=== PATIENT | male | born 1995 | race Caucasian/White ===

== ENCOUNTER 2016-10-19 04:31 | Emergency (ER) | payer SELFPAY ==
[~2016-10-19] VITALS: Ht 185.4 cm; Wt 93.9 kg
[~2016-10-19 04:31] MED LIST: ABILIFY10 MG PO; ABILIFY30 MG PO; ABILIFY5 MG PO; BUSPAR5 MG PO; Benadryl PO; CELEXA10 MG PO; CLONIDINE HCL0.1 MG PO; DIVALPROEX SOD250 MG PO; DIVALPROEX SOD500 M1 PO; DIVALPROEX SOD500 MG PO; EPIPEN ADU0.3 MG/0.3 IM; GABAPENTIN100 MG PO; GABAPENTIN300 MG PO; IBUPROFEN600 MG PO; INVEGA6 MG PO; LAMICTAL150 M1 PO; LAMICTAL200 MG PO; LAMICTAL25 MG PO; MIRTAZAPINE15 MG PO; MOTRIN800 MG PO; NEURONTIN100 MG PO; NEURONTIN300 MG PO; NEURONTIN600 MG PO; PRAZOSIN HCL1 MG PO; PREDNISONE20 MG PO; RISPERDAL0.5 MG PO; RISPERIDONE0.25 MG PO; SEROQUEL XR300 MG PO; TENEX1 M1 PO; TRAZODONE HCL50 MG PO; TRILEPTAL300 MG PO; ULTRAM50 MG PO; ZOFRAN4 MG PO; ZOLOFT50 MG PO
[2016-10-19] MEDS ORDERED: LATUDA40 MG PO (05:34)
[2016-10-19] MEDS ORDERED: BUSPAR5 MG PO (05:34)
[2016-10-19 05:46] VITALS: BP 139/74
== END 2016-10-19 06:20 | disposition home or self-care (01) ==
LOC: EME 04:31
DX: F41.0 Panic disorder [episodic paroxysmal anxiety] (principal); F41.1 Generalized anxiety disorder; Z76.0 Encounter for issue of repeat prescription
CPT/HCPCS: 99281; 99284

== ENCOUNTER 2016-12-08 19:59 | Emergency (ER) | payer OTHER ==
[~2016-12-08] VITALS: Ht 180.3 cm; Wt 97.2 kg
[~2016-12-08 19:59] MED LIST changes: +LATUDA40 MG PO
[2016-12-08 21:04] LABS: HEMATOCRIT 45.4 % (38.0-50.0); MCHC 34.6 G/DL (30.0-36.0); MCV 98.3 FL (86-99); MEAN PLAT.VOLUME 10.4 uM^3 (9.0-12.4); PLATELET COUNT 237 K/uL (156-360); RBC DIS.WIDTH-CV 11.9 % (11.8-14.6); RBC DIS.WIDTH-SD 43.1 % (39-53); RED BLOOD COUNT 4.62 M/uL (4.00-5.50); WHITE BLOOD COUNT 9.3 K/uL (4.1-10.2)
[2016-12-08 21:09] LABS: CHLORIDE 103 mEq/L (99-109); POTASSIUM 3.9 mEq/L (3.7-5.4); SODIUM 140 mEq/L (136-147)
[2016-12-08 21:11] LABS: GLUCOSE 88 mg/dL (70-99)
[2016-12-08 21:13] LABS: ANION GAP 8 MEQ/L (2-14); TROP-I INTERPRETATION NEGATIVE; TROPONIN-I < 0.01 ng/mL (0.0-0.30)
[2016-12-08 21:16] LABS: UREA NITROGEN (BUN) 12 mg/dL (9-23)
[2016-12-08 21:33] LABS: GFR ESTIMATE (CALCULATED) > 59 mL/min/
[2016-12-08 22:41] VITALS: BP 127/78
== END 2016-12-08 22:42 | disposition left against medical advice (07) ==
LOC: EME 19:59
DX: R07.9 Chest pain, unspecified (principal); M79.602 Pain in left arm; Z53.21 Procedure and treatment not carried out due to patient leaving prior to being seen by health care provider
CPT/HCPCS: 71020; 80048; 84484; 85027; 93005; 99281; 99284

== ENCOUNTER 2016-12-23 21:31 | Inpatient (IN) | payer OTHER ==
[~2016-12-23] VITALS: Ht 180.3 cm; Wt 96.5 kg
[2016-12-23] MEDS ORDERED: LATUDA40 MG PO (23:20)
[2016-12-24 00:19] LABS: HEMATOCRIT 43.6 % (38.0-50.0); MCHC 34.9 G/DL (30.0-36.0); MCV 97.5 FL (86-99); MEAN PLAT.VOLUME 10.6 uM^3 (9.0-12.4); PLATELET COUNT 241 K/uL (156-360); RBC DIS.WIDTH-CV 11.8 % (11.8-14.6); RBC DIS.WIDTH-SD 42.5 % (39-53); RED BLOOD COUNT 4.47 M/uL (4.00-5.50); WHITE BLOOD COUNT 11.2 K/uL (4.1-10.2)
[2016-12-24 00:21] LABS: AMPHETAMINE NEGATIVE (500 ng/mL); BARBITURATES NEGATIVE (200 ng/mL); BENZODIAZEPINES NEGATIVE (150 ng/mL); COCAINE NEGATIVE (150 ng/mL); INTERNAL CONTROLS VALID? YES; METHADONE NEGATIVE (200 ng/mL); METHAMPHETAMINE NEGATIVE (500 ng/mL); OPIATES (MORPHINE) NEGATIVE (100 ng/mL); OXYCODONE NEGATIVE (100 ng/mL); PHENCYCLIDINE NEGATIVE (25 ng/mL); PROPOXYPHENE NEGATIVE (300 ng/mL); THC CANNABINOIDS NEGATIVE (50 ng/mL); TRICYCLIC ANTIDEPRESSANTS NEGATIVE (300 ng/mL)
[2016-12-24 00:30] LABS: CHLORIDE 107 mEq/L (99-109); SODIUM 142 mEq/L (136-147)
[2016-12-24 00:32] LABS: GLUCOSE 95 mg/dL (70-99)
[2016-12-24 00:33] LABS: ANION GAP 8 MEQ/L (2-14)
[2016-12-24 00:35] LABS: SERUM ETHYL ALCOHOL < 10 mg/dL
[2016-12-24 00:36] LABS: GFR ESTIMATE (CALCULATED) > 59 mL/min/
[2016-12-24 00:37] LABS: UREA NITROGEN (BUN) 16 mg/dL (9-23)
[2016-12-24 07:49] VITALS: BP 89/45
[2016-12-24 11:00] VITALS: BP 126/68
[2016-12-24 15:52] VITALS: BP 132/78
[2016-12-25 08:04] VITALS: BP 95/42
[2016-12-25 16:04] VITALS: BP 127/59
[2016-12-26 07:40] VITALS: BP 109/53
[2016-12-26] MEDS ORDERED: QUETIAPINE FUM300 MG PO (09:17)
== END 2016-12-26 09:37 | disposition home or self-care (01) | DRG 885 ==
LOC: EME 21:31 → 1WEST 12-24 02:06 → EDOF 12-24 02:06 → 1WEST 12-24 03:08
PROVIDERS: Emergency Medicine
DX: F33.9 Major depressive disorder, recurrent, unspecified (principal); R45.851 Suicidal ideations; F41.1 Generalized anxiety disorder; F60.9 Personality disorder, unspecified; F19.10 Other psychoactive substance abuse, uncomplicated; F11.21 Opioid dependence, in remission; Z59.0 Homelessness
CPT/HCPCS: 80048; 85027; 90837; 97150 GO; 97166 GO; 99281; 99285; G0480

== ENCOUNTER 2017-01-24 16:19 | Emergency (ER) | payer OTHER ==
[~2017-01-24] VITALS: Ht 180.3 cm; Wt 99.4 kg
[~2017-01-24 16:19] MED LIST changes: +QUETIAPINE FUM300 MG PO
[2017-01-24 16:59] LABS: HEMATOCRIT 44.5 % (38.0-50.0); MCH 33.7 PG (29.0-34.0); MCHC 35.5 G/DL (30.0-36.0); MCV 94.9 FL (86-99); MEAN PLAT.VOLUME 10.3 uM^3 (9.0-12.4); PLATELET COUNT 254 K/uL (156-360); RBC DIS.WIDTH-CV 11.4 % (11.8-14.6); RED BLOOD COUNT 4.69 M/uL (4.00-5.50); WHITE BLOOD COUNT 10.3 K/uL (4.1-10.2)
[2017-01-24 17:09] LABS: CHLORIDE 106 mEq/L (99-109); POTASSIUM 4.1 mEq/L (3.7-5.4); SODIUM 144 mEq/L (136-147)
[2017-01-24 17:11] LABS: GLUCOSE 90 mg/dL (70-99)
[2017-01-24 17:12] LABS: ANION GAP 9 MEQ/L (2-14)
[2017-01-24 17:14] LABS: SERUM ETHYL ALCOHOL < 10 mg/dL
[2017-01-24 17:15] LABS: GFR ESTIMATE (CALCULATED) > 59 mL/min/
[2017-01-24 17:16] LABS: UREA NITROGEN (BUN) 18 mg/dL (9-23)
[2017-01-24 19:01] LABS: AMPHETAMINE NEGATIVE (500 ng/mL); BARBITURATES NEGATIVE (200 ng/mL); BENZODIAZEPINES NEGATIVE (150 ng/mL); COCAINE NEGATIVE (150 ng/mL); INTERNAL CONTROLS VALID? YES; METHADONE NEGATIVE (200 ng/mL); METHAMPHETAMINE NEGATIVE (500 ng/mL); OPIATES (MORPHINE) NEGATIVE (100 ng/mL); OXYCODONE NEGATIVE (100 ng/mL); PHENCYCLIDINE NEGATIVE (25 ng/mL); PROPOXYPHENE NEGATIVE (300 ng/mL); THC CANNABINOIDS NEGATIVE (50 ng/mL); TRICYCLIC ANTIDEPRESSANTS NEGATIVE (300 ng/mL)
[2017-01-25 11:35] VITALS: BP 113/61
== END 2017-01-25 11:50 ==
LOC: EME 16:19
PROVIDERS: Emergency Medicine
DX: F33.2 Major depressive disorder, recurrent severe without psychotic features (principal); F31.9 Bipolar disorder, unspecified; R45.851 Suicidal ideations; Z91.19 Patient's noncompliance with other medical treatment and regimen; F17.200 Nicotine dependence, unspecified, uncomplicated
CPT/HCPCS: 80048; 85027; 90837; 99281; 99285; G0480

== ENCOUNTER 2017-09-22 12:51 | Emergency (ER) | payer OTHER ==
[~2017-09-22] VITALS: Ht 180.3 cm; Wt 110.5 kg
[2017-09-22 13:46] LABS: HEMATOCRIT 45.7 % (38.0-50.0); HEMOGLOBIN 16.3 G/DL (12.5-16.6); MCH 34.7 PG (29.0-34.0); MCHC 35.7 G/DL (30.0-36.0); MCV 97.2 FL (86-99); PLATELET COUNT 236 K/uL (156-360); RBC DIS.WIDTH-CV 11.7 % (11.8-14.6); RBC DIS.WIDTH-SD 42.2 % (39-53)
[2017-09-22 13:54] LABS: ALBUMIN 4.2 g/dL (3.2-4.8)
[2017-09-22 13:55] LABS: CHLORIDE 107 mEq/L (99-109); POTASSIUM 4.1 mEq/L (3.7-5.4); SODIUM 141 mEq/L (136-147)
[2017-09-22 13:57] LABS: GLUCOSE 88 mg/dL (70-99); TOTAL PROTEIN 7.3 g/dL (6.4-8.3)
[2017-09-22 13:59] LABS: TOTAL BILIRUBIN 0.5 mg/dL (0.0-1.0)
[2017-09-22 14:01] LABS: ALKALINE PHOSPHATASE 96 IU/L (3-129); CREATININE 0.8 mg/dL (0.6-1.3); GFR ESTIMATE (CALCULATED) > 59 mL/min/ (58.99-99999)
[2017-09-22 14:02] LABS: UREA NITROGEN (BUN) 17 mg/dL (9-23)
[2017-09-22 14:03] LABS: AST (GOT) 27 IU/L (2-34)
[2017-09-22 14:04] LABS: ALT (GPT) 29 IU/L (3-49)
[2017-09-22 16:33] VITALS: BP 114/69
== END 2017-09-22 16:34 | disposition home or self-care (01) ==
LOC: EME 12:51
DX: R10.32 Left lower quadrant pain (principal); R19.7 Diarrhea, unspecified; K50.90 Crohn's disease, unspecified, without complications; F90.9 Attention-deficit hyperactivity disorder, unspecified type; F43.10 Post-traumatic stress disorder, unspecified; F41.9 Anxiety disorder, unspecified; Z87.891 Personal history of nicotine dependence; Z90.89 Acquired absence of other organs; Z91.010 Allergy to peanuts
CPT/HCPCS: 80053; 81003; 85027